=== PATIENT | female | born 1955 | race African-American/Black ===

== ENCOUNTER 2016-08-22 09:18 | Emergency (ER) | payer MEDICAID ==
[~2016-08-22] VITALS: Ht 162.6 cm; Wt 60.0 kg
[2016-08-22] MEDS ORDERED: METHOCARBAMOL 500MG TABLET PO ONE (09:45)
[2016-08-22] MEDS ORDERED: MORPHINE SULFATE 2 MG/ML CPJ (NOT FOR IM USE) IV ONE (09:45)
[2016-08-22] MEDS ORDERED: KETOROLAC 30MG/ML VIAL IV ONE (09:45)
[2016-08-22 09:50] VITALS: BP 161/69
== END 2016-08-22 11:44 | disposition home or self-care (01) ==
LOC: ER 09:30
DX: G89.29 Other chronic pain (principal); M54.5 Low back pain; M54.30 Sciatica, unspecified side; I10 Essential (primary) hypertension; Z88.6 Allergy status to analgesic agent
CPT/HCPCS: 96374; 96375; 99284; J1885; J2270